=== PATIENT | female | born 1970 | race Two or more races ===

== ENCOUNTER 2024-04-23 03:37 | Emergency (ER) | payer BC ==
[~2024-04-23] VITALS: Ht 157.5 cm; Wt 65.8 kg
[2024-04-23] MEDS ORDERED: FAMOTIDINE/PF 20 MG/2 ML VIAL IV PUSH STA (04:04)
[2024-04-23] MEDS ORDERED: PROMETHAZINE HCL 50 MG/ML AMPUL IM STA (04:04)
[2024-04-23] MEDS ORDERED: 0.9 % SODIUM CHLORIDE 1,000 ML IV ONE (04:15)
[2024-04-23 04:37] LABS: HEMATOCRIT 35.8 % (36.0-45.00); HEMOGLOBIN 11.9 g/dL (12.0-15.00); MEAN CELL VOLUME 81.1 fL (80.00-100.00); MEAN CORPUSCULAR HGB CONC 33.2 g/dl (32.0-36.0); PLATELET COUNT 229 K/uL (150-450); RED BLOOD COUNT 4.41 M/uL (4.00-6.00); RED CELL DISTRIBUTION WIDTH 13.9 % (11.5-14.5)
[2024-04-23 04:59] LABS: ALBUMIN 3.6 gm/dL (3.4-5.0); BILIRUBIN TOTAL 0.37 mg/dL (0.3-1.2); CALCIUM 8.8 mg/dL (8.5-10.1); CREATININE SERUM 0.8 mg/dL (0.55-1.02); GFR 74.47; GLOBULINA 2.9 G/DL (2.4-3.5); POTASSIUM 4.28 mEq/L (3.5-5.1); TOTAL PROTEIN 6.5 gm/dL (6.4-8.2)
[2024-04-23] MEDS ORDERED: PEPCID40 MG PO (07:53)
[2024-04-23] MEDS ORDERED: ZOFRAN8 MG PO (07:53)
[2024-04-23 08:01] LABS: URINE APPEARANCE Clear; URINE BILIRRUBIN Negative (NEGATIVE); URINE BLOOD Negative; URINE COLOR Yellow; URINE GLUCOSE Negative (NEGATIVE); URINE KETONE Negative (NEGATIVE); URINE LEUKOCYTE Negative; URINE NITRATE Negative; URINE PROTEIN Negative (NEGATIVE); URINE UROBILINOGEN 0.2 E.U./dl
[2024-04-23 08:05] LABS: URINE RBC 2.9 uL (0.0-20.8); URINE WBC 19.7 uL (0.0-23.2)
== END 2024-04-23 08:06 ==
LOC: ER 03:37
PROVIDERS: General Practice
DX: F12.929 Cannabis use, unspecified with intoxication, unspecified (principal); R11.10 Vomiting, unspecified; F10.90 Alcohol use, unspecified, uncomplicated